=== PATIENT | male | born 1965 | race Caucasian/White ===

== ENCOUNTER 2016-05-02 14:56 | Emergency (ER) | payer BC ==
[~2016-05-02] VITALS: Ht 180.3 cm; Wt 82.7 kg
[~2016-05-02 14:56] MED LIST: ASPI-611 PO
--- OUTSIDE RECORDS SUMMARY | 2016-05-02 15:00 | XMS REPORT ---
Author Author Kyler Sher Organization [employer] Address Unknown Phone Unavailable Care Team Providers Care Personal Lines Advisor Name Role Phone Kyler Sher CP Unavailable Allergies, Adverse Reactions, Alerts Substance Reaction Event Type N.K.D.A. Info Not Available Non Drug Allergy Problems Problem Type Condition Code Onset Dates Condition Status Assessment Encounter for dental examination and cleaning without abnormal findings Z01.20 Active Medications No Known Medications Procedures Procedure Coding System Code Date INTRAORL - CMPL SERIES CODE 91729 CPT-4 D0210 Nov 09, 2015 COMP ORAL EVALUATION - NEW/EST PT CPT-4 D0150 Nov 09, 2015 Results No Known Results Summary Purpose [employer] Submission
--- OUTSIDE RECORDS SUMMARY | 2016-05-02 15:00 | XMS REPORT | Continuity of Care Document ---
Demographics Preferred Language Unknown Marital Status Unknown Mandaen Affiliation Unknown Race Unknown Ethnic Group Unknown Author Author [facility] Organization [facility] Address Unknown Phone Unavailable Allergies Medications Problems Procedures Results Encounters ACCT No. Visit Date/Time Discharge Status Pt. Type Provider Facility Loc./Unit Complaint [id number] 02/12/2013 08:59:00 [facility] Unknown
--- OUTSIDE RECORDS SUMMARY | 2016-05-02 15:00 | XMS REPORT ---
Author Author Kyler Sher Organization [employer] Address Unknown Phone Unavailable Care Team Providers Care Transmission System Operator Name Role Phone Kyler Sher CP Unavailable Allergies No Known Allergies Problems Problem Type Condition Code Onset Dates Condition Status Assessment Dental caries, unspecified K02.9 Active Medications No Known Medications Procedures Procedure Coding System Code Date EXTRAC ERUPTED TOOTH/EXPOSED ROOT CPT-4 D7140 Nov 23, 2015 EXTRAC ERUPTED TOOTH/EXPOSED ROOT CPT-4 D7140 Nov 23, 2015 Vital Signs Date/Time: Nov 23, 2015 Blood Pressure Diastolic 96 mm Hg Blood Pressure Systolic 124 mm Hg Cardiac Monitoring Heart Rate 96 /min Results No Known Results Summary Purpose [employer] Submission
--- OUTSIDE RECORDS SUMMARY | 2016-05-02 15:00 | XMS REPORT ---
Author Author Kyler Sher Organization [employer] Address Unknown Phone Unavailable Care Team Providers Care Gear Tooth Grinding Machine Operator Name Role Phone Kyler Sher CP Unavailable Allergies No Known Allergies Problems Problem Type Condition Code Onset Dates Condition Status Assessment Dental caries, unspecified K02.9 Active Medications No Known Medications Procedures Procedure Coding System Code Date RESIN COMPOS - 2 SURFACES POSTERIOR CPT-4 D2392 Dec 14, 2015 RESIN COMPOS - 2 SURFACES POSTERIOR CPT-4 D2392 Dec 14, 2015 Results No Known Results Summary Purpose [employer] Submission
--- OUTSIDE RECORDS SUMMARY | 2016-05-02 15:00 | XMS REPORT ---
Author Author Kyler Sher Organization [employer] Address Unknown Phone Unavailable Care Team Providers Care Movie Projectionist Name Role Phone Kyler Sher CP Unavailable Allergies No Known Allergies Problems Problem Type Condition Code Onset Dates Condition Status Assessment Dental caries on pit and fissure surface penetrating into pulp K02.53 Active Medications No Known Medications Procedures Procedure Coding System Code Date EXTRAC ERUPTED TOOTH/EXPOSED ROOT CPT-4 D7140 Dec 07, 2015 EXTRAC ERUPTED TOOTH/EXPOSED ROOT CPT-4 D7140 Dec 07, 2015 Results No Known Results Summary Purpose [employer] Submission
--- OUTSIDE RECORDS SUMMARY | 2016-05-02 15:00 | XMS REPORT | CCD ---
Author Author SHARON SANCHEZ Organization Unknown Address [address], [place] [id number] Phone 0 Care Team Providers Care Repeat Photocomposing Machine Operator Name Role Phone ROCHELLE STONE, W Attending Physician [phone] Vital Signs Unknown. Allergies Unknown. Procedures Unknown. History of Immunizations Unknown. Problems Unknown. Results Unknown. Medications Unknown. Medications Administered Unknown. Encounters Unknown. Social History Smoking Status Code Start Date End Date Unknown if ever smoked [id number] Patient Decision Aids Unknown. Instructions You were admitted to [facility] on 02/01/2013. You were discharged from [facility] on 02/01/2013. Should you have any questions prior to discharge, please contact a member of your healthcare team. If you have left the hospital and have any questions, please contact your primary care physician. Chief Complaint and Reason For Visit Chief Complaint Date of Onset EKG Function Status Unknown. Plan of Care Unknown. Referral/Transition of Care Unknown.
[2016-05-02 15:03] VITALS: Ht 180.3 cm; Wt 82.7 kg
[2016-05-02] MEDS ORDERED: NO ROUTINE MEDS (15:09)
--- OUTSIDE RECORDS SUMMARY | 2016-05-02 15:10 | XMS REPORT | Continuity of Care Document ---
Demographics Preferred Language Unknown Marital Status Unknown Jainism Affiliation Unknown Race Unknown Ethnic Group Unknown Author Author [facility] Organization [facility] Address Unknown Phone Unavailable Allergies Medications Problems Procedures Results Encounters ACCT No. Visit Date/Time Discharge Status Pt. Type Provider Facility Loc./Unit Complaint [id number] 02/12/2013 08:59:00 ACT Unknown
--- NOTE | 2016-05-02 15:12 | ERPDOC ---
Departure Disposition Decision Date: May 02, 2016 Disposition Decision Time: 15:11 Disposition: 01 DISCHARGED HOME, SELF-CARE Impression Impression Impression: Primary Impression: Foreign body in right ear Encounter type: initial encounter Qualified Codes: T16.1XXA - Foreign body in right ear, initial encounter Severity: Mild Condition: Improved Seen By: Physician only Referrals: MARCY ROSA MD (Family) As needed Patient Instructions: Ear Foreign Body (ED) Problems/Meds/Labs Reviewed?: Yes Medications reviewed and manag: Yes Follow up care ordered?: Yes Mental Status: Alert, Oriented HPI General Chief Complaint: Ear Pain/Injury Stated Complaint: QTIP IN EAR Time Seen by Provider: 15:01 Source: patient (Patient presents to the ER with a possible foreign body to his right ear. Patient believes it's cotton from a Q-Tip) Exam Limitations: no limitations HPI ENT FB Occurred At: home Onset: Changing over time Duration: 1-3 hrs Pain Scale: Now & Worst: 0/10 Severity: mild Location: R ear Associated Symptoms: DENIES: coughing, dyspnea, ear drainage, fever, hoarseness , nasal drainage, sneezing, stridor Prior Hx of inserting objects?: No Allergies: Coded Allergies: No Known Allergies (Verified Allergy, Unknown, 09/15/08) Past History Past Medical History Pt denies signifigant PMH Hx Echocardiogram: No Surgical History Denies Surgeries Vaccines Hx Influenza Vaccination: No Hx Pneumococcal Vaccination: No Hx Tetanus, Diptheria, Pertuss: Yes (UNKNOWN LAST TETANUS) Social History Smoking Status: Unknown if ever smoked Does patient use chewing tobac: No Second Hand Exposure: No Substance Use Type: does not use Alcohol Intake: none Housing: house Service: No Current Occupational Status: employed Occupational Hazard: No Advance Directives: Yes Full Code Record Review Pertinent history updated: Yes Review of Systems Constitutional Constitutional: DENIES: chills, fever Eyes Lids/Accessories: DENIES: erythema, swelling ENMT Ears: foreign body (Right ear, believes it's cotton from a Q-Tip), DENIES: erythema, pain Balance: DENIES: ataxia, vertigo Sinuses: DENIES: congestion, rhinorrhea Mouth/Throat: DENIES: sore throat Cardiovascular Cardiac: DENIES: chest pain, dyspnea on exertion, orthopnea Rhythm/Rate: DENIES: tachycardia Pulmonary Respiratory: DENIES: cough, dyspnea, sputum GI Upper Abdomen: DENIES: nausea, pain, vomiting Lower Abdomen: DENIES: constipation, diarrhea, pain General: DENIES: dysuria Musculoskeletal General: DENIES: cramps, pain, weakness Integumentary Skin: DENIES: color change, itching, rash Neurological General: DENIES: ataxia, change in strength, headache, numbness, poor coordination, seizures, syncope, vertigo, weakness Psychiatric Psychiatric: DENIES: anxiety, depression, nervousness Hematologic/Lymphatic Hematologic/Lymphatic: DENIES: anemia Allergic/Immunological Allergic/Immunoligical: DENIES: sneezing All other Systems All Other Systems: Reviewed and Negative Exam General General Nourishment: well nourished, well developed, appears stated age, no acute distress, adult General Body Habitus: well groomed Vital Signs: RN Vital Signs have been reviewed: Yes, Temperature: 97.7, Source : Oral, Heart Rate: 76, Respiratory Rate: 14, BP: 122/79, Pulse Oximetry: 96 Height (Feet): 5 Height (Inches): 11.00 [facility] Foreign Body Nose: NOT FOUND: deviation, erythema, exudate, swelling Eyes (brief) Eyes Brief: found: EOMI, PERRL ENMT (brief) ENMT: FOUND: TM clear, TM good light reflex, mucosa moist, other (Small amout of Cotton removed from right ear by nursing without complications. ), NOT FOUND : pharnyx erythema Neck (brief) Neck Brief: FOUND: trachea midline, NOT FOUND: adenopathy, tenderness, tracheal deviation Respiratory (brief) Respiratory Brief: FOUND: clear all mejia, equal bilaterally, NOT FOUND: tenderness Cardiovascular (brief) Cardiac Brief: FOUND: regular rate, regular rhythm Capillary Refill: <2 sec, >2 sec, other Abdomen (brief) Abdominal Brief: FOUND: bowel normo active x4, soft, NOT FOUND: distended, tender Lymphatic (brief) Lymphatic Brief: NOT FOUND: adenopathy, lymphedema Musculoskeletal (brief) Musculoskeletal Brief: NOT FOUND: deformity, loss of motion, spasm, tenderness Integumentary (brief) Integumentary Brief: FOUND: pink, warm Neurological (brief) Neurological Brief: FOUND: CN w/o gross def to obs, ataxia, gait w/o gross def to obs, motor-no gross deficits, sensory-no gross deficits Neurological RN Documented GCS Eye Opening: Verbal: Motor: Total: Psychiatric (brief) Psychiatric Brief: FOUND: alert, attentive, normal affect, oriented Differential Diagnoses Considering: Foreign Body Ear Procedures Procedures Performed Procedures Performed: FBR - ear/nose Foreign Body Removal Procedure Foreign Body Removal : Location: ear Foreign Body: other (cotton) Anesthesia: other (none) Skin Prep: none (nonr) Removal Technique: alligator forceps (Removed by Nursing befor I evaluated the patient. No Complications) Sutures: No Medications: DANA Morris DO May 02, 2016 15:12
[2016-05-02 15:25] VITALS: BP 118/75; PULSE 72; RESP 14; TEMP 97.7; O2SAT 97
== END 2016-05-02 15:25 | disposition home or self-care (01) ==
LOC: ED 14:56
DX: T16.1XXA Foreign body in right ear, initial encounter (principal); X58.XXXA Exposure to other specified factors, initial encounter; Y93.E8 Activity, other personal hygiene; Y92.009 Unspecified place in unspecified non-institutional (private) residence as the place of occurrence of the external cause; Y99.8 Other external cause status